=== PATIENT | female | born 2000 | race Caucasian/White ===

== ENCOUNTER 2019-02-22 21:15 | Emergency (ER) | payer OTHER ==
[~2019-02-22] VITALS: Ht 162.6 cm; Wt 53.5 kg
[2019-02-22 21:21] VITALS: BP 123/75
--- NOTE | 2019-02-22 21:21 | NUR ---
TO BED # 03 AMBULATORY, REPORT GIVEN TO TIFFANY HENNESSY
--- NOTE | 2019-02-22 21:26 | NUR ---
PT TAKEN TO BED 3
--- NOTE | 2019-02-22 21:39 | NUR ---
19 YO F BIB SELF CO 9/10 THROBBING CHO X 3 HOURS. PT REPORTS THE PAIN IS LOCATED IN THE TEMPORAL REGION AND SHE CAN FEEL IT BEHIND HER EYES. PT STATES SHE HAS HAD SIMILAR CHO THAT COME AND GO X 3 MONTHS BUT THEY HAVE BEEN OCCURING MORE FREQUENTLY AND SUDDENLY FOR PAST MONTH. PT STATES SHE WAS GIVEN SUMATRIPTIN BY HER PCP BUT IT IS INEFFECTIVE IN TREATING HER PAIN. --PMH: DENIES --RX: DENIES
--- NOTE | 2019-02-22 21:43 | NUR ---
PT TAKEN TO CT.
[2019-02-22] MEDS ORDERED: KETOROLAC 30 MG/ML VIAL IM ONE (22:10)
[2019-02-22 22:37] VITALS: BP 125/72
--- NOTE | 2019-02-22 22:37 | NUR ---
Patient discharged with v/s stable. Written and verbal after care instructions given and explained. Patient alert, oriented and verbalized understanding of instructions. Ambulatory with steady gait. All questions addressed prior to discharge. ID band removed. Patient advised to follow up with PMD. Rx of fioricet 50 mg-325 mg-40mg given. Patient educated on indication of medication including possible reaction and side effects. Opportunity to ask questions provided and answered.
[2019-02-22 22:46] LABS: BARBITURATE, URINE NEG. ng/ml (NEG <=200); BENZODIAZEPINE, URINE NEG. ng/mL (NEG <=200); CANNABINOID, URINE NEG. ng/mL (NEG <=50); COCAINE, URINE NEG. ng/mL (NEG <=300); OPIATE, URINE NEG. ng/mL (NEG <=2000); PHENCYCLIDINE SCREEN,URINE NEG. ng/mL (NEG <=25)
== END 2019-02-22 22:37 | disposition home or self-care (01) ==
LOC: MED 21:15
DX: G43.909 Migraine, unspecified, not intractable, without status migrainosus (principal); F43.9 Reaction to severe stress, unspecified
CPT/HCPCS: 70450; 80305; 81002; 81025; 96372; 99284; J1885